=== PATIENT | female | born 1975 | race Caucasian/White ===

== ENCOUNTER 2016-09-24 11:15 | Emergency (ER) | payer OTHER ==
[2016-09-24 11:40] VITALS: BP 142/79
--- NOTE | 2016-09-24 12:20 | EDM.PDOC ---
ED HPI GENERAL MEDICAL PROBLEM - General Time Seen by Provider: 09/24/16 12:00 rectal pressure Pain Score (Numeric/FACES): 5 - Related Data Allergies Allergy/AdvReac Type Severity Reaction Status Date / Time NSAIDS (Non-Steroidal Allergy Other Verified 09/24/16 11:41 Anti-Inflamma Sulfa (Sulfonamide Allergy Redness Verified 09/24/16 11:41 Antibiotics) Home Meds: Home Meds Calcium Carbonate [Calcium] 500 mg PO DAILY 09/24/16 [History] Levothyroxine [Synthroid] 100 mcg PO DAILY 09/24/16 [History] Multivitamins with Iron [Daily Multivitamin with Iron] 1 tab PO DAILY 09/24/16 [ History] Omeprazole 20 mg PO DAILY 09/24/16 [History] Past Medical History - Past Health History Medical/Surgical History: Denies Medical/Surgical History Hematologic History: Reports: Blood transfusion(s), Other (see below) Other Hematologic History: hypothyroidism - Past Surgical History GI Surgical History: Reports: Bariatric procedure Social & Family History - Family History Family Medical History: Noncontributory - Tobacco Use Smoking Status *Q: Never Smoker - Caffeine Use Caffeine Use: Reports: None - Recreational Drug Use Recreational Drug Use: No ED ROS GENERAL - Review of Systems Review Of Systems: See Below Constitutional: Denies: Fever, Chills GI/Abdominal: Reports: Abdominal Pain (lower abdominal pain and cramping), Constipation, Hematochezia (reports hemorrhoids). Denies: Bloody Stool, Diarrhea, Melena, Nausea, Vomiting : Reports: No Symptoms. Denies: Dysuria Musculoskeletal: Denies: Back Pain, Leg Pain ED EXAM, GI/ABD - Physical Exam Exam: See Below Exam Limited By: No Limitations General Appearance: Alert, WD/WN, No Apparent Distress Respiratory/Chest: No Respiratory Distress, Lungs Clear, Normal Breath Sounds Cardiovascular: Normal Peripheral Pulses, Regular Rate, Rhythm, No Murmur GI/Abdominal: Normal Bowel Sounds, Soft, Non-Tender Neurological: Alert, Oriented Psychiatric: Normal Affect, Normal Mood Skin Exam: Warm, Pallor, Other (surgical incisions are healing well; no signs of infection) Course - Vital Signs Last Recorded V/S: Last Vital Signs Temp 36.5 C 09/24/16 11:34 Pulse 88 09/24/16 11:34 Resp 18 09/24/16 11:34 BP 142/79 H 09/24/16 11:34 Pulse Ox 100 09/24/16 11:34 - Orders/Labs/Meds Labs: Laboratory Tests 09/24/16 Range/Units 12:30 WBC 7.90 (3.98-10.04) K/mm3 RBC 3.43 L (3.98-5.22) M/mm3 Hgb 9.8 L (11.2-15.7) gm/L Hct 31.2 L (34.1-44.9) % MCV 91.0 (79.4-94.8) fl MCH 28.6 (25.6-32.2) pg MCHC 31.4 L (32.2-35.5) g/dl RDW Std Deviation 45.9 (36.4-46.3) fL Plt Count 465 H (182-369) K/mm3 MPV 10.8 (9.4-12.3) fl - Radiology Interpretation Free Text/Narrative:: flat and upright abdominal xray shows no acute obstruction. Minimal stool noted in the colon. CT Results Date: 09/24/16 - Re-Assessments/Exams Free Text/Narrative Re-Assessment/Exam: 09/24/16 13:03 Labs returned. White blood count is 7.90, hemoglobin is 9.8 and platelets are 465. I reviewed the CBC and x-ray results with the patient. Will attempt to give her an enema for relief. 09/24/16 14:33 Patient received a fleets mineral oil enema. She had a small bowel movement. She reports feeling slightly improved but still feels that stool is still present. I offered a repeat enema. at This time she would like to go home and rest. Discharge instructions as documented. Departure - Departure Time of Disposition: 14:38 Disposition: Home, Self-Care 01 Clinical Impression: Constipation - Discharge Information Instructions: Constipation, Adult Referrals: PCP,Not In Area [Primary Care Provider] - Forms: ED Department Discharge Additional Instructions: Continue with your current plan of care. Recommend starting an [id number] medication such as MiraLax or Colace for normal daily bowel maintenance. Followup with your surgeon if you continue to have problems. Please return to the ER should your symptoms change or worsen. ED HPI GI/ABDOMINAL - General Chief Complaint: Gastrointestinal Problem Stated Complaint: 2 WEEKS POST SURG TINCK SHE HAS A IMPACTED BOWELS Time Seen by Provider: 09/24/16 12:00 Source of Information: Reports: Patient History Limitations: Reports: No Limitations - History of Present Illness INITIAL COMMENTS - FREE TEXT/NARRATIVE: 41-year-old female presents for evaluation and treatment of constipation. Patient had gastric bypass performed September 07 in [place]. She reports that she has been following up with her surgeon. She had Tonio-en-Y procedure performed. She states over the last 3 days she is having troubled with constipation. She states that she feels the urge to defecate but is not having a bowel movement. She states she has hemorrhoids because of the straining. She states her last bowel movement was on Sunday and was only a small bowel movement. She did not have anything yesterday. She states that Sunday she had some "pencil like poops" and then she had small amount of diarrhea. Patient reports symptoms of lower abdominal cramping and pain, decreased appetite and the urge to defecate. She reports some hematochezia from the hemorrhoids. Denies any fevers, chills, nausea, vomiting, melena, back pain, pain into her legs or urinary symptoms. Patient reports that she is still passing gas. She has tried MiraLax, senna and 3 different glycerin suppositories Without any relief. She was on tramadol one week postop and is no longer on any pain medications. Current medications include vitamin with iron, omeprazole and levothyroxine. - Related Data Allergies/ADRs: Allergies Allergy/AdvReac Type Severity Reaction Status Date / Time NSAIDS (Non-Steroidal Allergy Other Verified 09/24/16 11:41 Anti-Inflamma Sulfa (Sulfonamide Allergy Redness Verified 09/24/16 11:41 Antibiotics) Home Meds: Home Meds Calcium Carbonate [Calcium] 500 mg PO DAILY 09/24/16 [History] Levothyroxine [Synthroid] 100 mcg PO DAILY 09/24/16 [History] Multivitamins with Iron [Daily Multivitamin with Iron] 1 tab PO DAILY 09/24/16 [ History] Omeprazole 20 mg PO DAILY 09/24/16 [History] Departure - Departure Time of Disposition: 14:38 Disposition: Home, Self-Care 01 Condition: fair Clinical Impression: Constipation Instructions: Constipation, Adult Referrals: PCP,Not In Area [Primary Care Provider] - Forms: ED Department Discharge Additional Instructions: Continue with your current plan of care. Recommend starting an [id number]-yeffpvi medication such as MiraLax or Colace for normal daily bowel maintenance. Followup with your surgeon if you continue to have problems. Please return to the ER should your symptoms change or worsen.
--- NOTE | 2016-09-25 10:34 | CR ---
Abdomen: Supine and upright views of the abdomen were obtained. Comparison: No previous study is available. Surgical clips are seen from prior cholecystectomy. Scattered gas within nondilated small bowel and colon is seen which is felt to be incidental. Numerous anastomotic sutures seen within the left upper abdomen. Bony structures are unremarkable. Impression: 1. Numerous anastomotic sutures within the left upper abdomen as well as prior cholecystectomy. 2. Gas within numerous loops of small bowel and colon which do not appear to be obstructive. Mild ileus is possible. Diagnostic code #3
== END 2016-09-24 15:20 | disposition home or self-care (01) ==
LOC: JD.ED 11:15
DX: K59.00 Constipation, unspecified (principal); E03.9 Hypothyroidism, unspecified; Z79.899 Other long term (current) drug therapy; Z88.2 Allergy status to sulfonamides; Z88.8 Allergy status to other drugs, medicaments and biological substances; Z98.84 Bariatric surgery status
CPT/HCPCS: 36415; 74020; 74020-26; 85027; 99282; 99284